=== PATIENT | male | born 1945 | race Hispanic/Latino ===

== ENCOUNTER 2017-07-09 11:33 | Outpatient (CLI) | payer MEDICARE ==
[2017-07-09 13:09] LABS: Anion Gap 12 mmol/L (10-20); BUN (Urea Nitrogen) 13 mg/dL (8.4-25.7); Calc. Creatinine Clearance 0 mL/min (70-130); Carbon Dioxide 26 mmol/L (23-31); Chloride 104 mmol/L (98-107); Estimated GFR-MDRD Greater than 90
--- NOTE | 2017-07-18 21:41 | EKG ---
Test Reason : Blood Pressure : / mmHG Vent. 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
== END 2017-07-09 11:34 | disposition home or self-care (01) ==
LOC: LABBT 11:33
PROVIDERS: ATTEND Surgery
DX: Z01.818 Encounter for other preprocedural examination (principal); K40.90 Unilateral inguinal hernia, without obstruction or gangrene, not specified as recurrent
CPT/HCPCS: 80048; 93005; 93010

== ENCOUNTER 2017-07-24 07:05 | Day surgery (SDC) | payer MEDICARE ==
[2017-07-09 11:53] VITALS: BMI 29.6
[2017-07-24] MEDS ORDERED: Bupivacaine/Epinephrine 0.25% 30 ML VIAL ONE (08:10)
[2017-07-24] MEDS ORDERED: CEFAZOLIN/Water 2 GM/20 ML SYRINGE ONE (08:48)
[2017-07-24] MEDS ORDERED: Midazolam HCl 2 mg/2 ml Vial ONE (09:07)
[2017-07-24] MEDS ORDERED: Fentanyl 250 MCG/5 ML VIAL ONE (09:07)
[2017-07-24] MEDS ORDERED: Fentanyl 100 MCG/2 ML VIAL ONE ×2 (09:07→11:00)
[2017-07-24] MEDS ORDERED: ePHEDrine/0.9% NaCl/PF SYRINGE 50 mg/10 ml ONE (09:18)
[2017-07-24] MEDS ORDERED: Ondansetron HCl/PF 4 MG/2 ML Vial ONE (09:18)
[2017-07-24] MEDS ORDERED: Propofol 200 MG/20 ML VIAL ONE (09:18)
[2017-07-24] MEDS ORDERED: Glycopyrrolate 0.2 MG/ML 5 ML SYRINGE ONE (09:18)
[2017-07-24] MEDS ORDERED: Dexamethasone 20 MG/5 ML VIAL ONE (09:18)
[2017-07-24] MEDS ORDERED: Lidocaine 1% PF 5 ML VIAL ONE (09:18)
[2017-07-24] MEDS ORDERED: Promethazine HCl 25 MG/ML VIAL ONE (11:58)
[2017-07-24] MEDS ORDERED: HYDROcodone/Acetaminophen 5/325 mg Tablet ONE (12:43)
--- NOTE | 2017-07-25 10:50 | OP ---
DATE OF PROCEDURE: 07/24/2017 PREOPERATIVE DIAGNOSIS: Right inguinal hernia. POSTOPERATIVE DIAGNOSIS: Right inguinal hernia. PROCEDURE: Da Senia laparoscopic right inguinal hernia repair with mesh. Covidien ProGrip large. SURGEON: Matias Angela M.D. ANESTHESIA: General. ESTIMATED BLOOD LOSS: Minimal. COMPLICATIONS: None. SPECIMEN: None. FINDINGS: Right inguinal hernia. TECHNIQUE: The patient was taken to the operating room and placed supine on the table. After genera l anesthetic was obtained, a Weber was placed. The abdomen was shaved, prepped and draped in a steri le fashion. Curved incision was made above the umbilicus. Cautery was used to dissect down to and s core the fascia. Abdominal cavity entered bluntly using a 12-mm Ethicon trocar. High-flow pneumoper itoneum was obtained. Left and right abdominal 8 mm robot trocars were placed. All ports were docke d to the robot. The patient had been placed in Trendelenburg position. The peritoneum was taken nazanin n in the right lower quadrant into the preperitoneal space and the preperitoneal space was fully diss ected. Pubic tubercle exposed medially and anterior superior iliac crest laterally, iliopectineal li ne fully exposed. The large indirect hernia sac was dissected out of the defect type on the peritone um. There was no direct defect. ProGrip mesh was brought in and it is labeled medial aspect was hailey ryan over the pubic tubercle. The mesh was unfolded completely cover the direct, indirect and femoral areas. The peritoneum was reapproximated using running 3-0 Stratafix. All port sites were infiltra julissa using local anesthetic. All ports were removed under camera visualization. Pneumoperitoneum was let down. PDS was used to close the fascial defect above the umbilicus. All incisions were irrigat ed and closed using 4-0 Monocryl and Dermabond was placed on the skin. The patient was en route to [facility] in stable condition. All instrument counts, needle counts, and lap counts were correct.
== END 2017-07-24 13:30 | disposition home or self-care (01) ==
LOC: SDC 07:05
PROVIDERS: ATTEND Surgery
PROC: 0YU54JZ Supplement Right Inguinal Region with Synthetic Substitute, Percutaneous Endoscopic Approach (ICD-10-PCS; principal; 2017-07-24)
DX: K40.90 Unilateral inguinal hernia, without obstruction or gangrene, not specified as recurrent (principal); I10 Essential (primary) hypertension; Z79.82 Long term (current) use of aspirin; Z79.899 Other long term (current) drug therapy; Z98.890 Other specified postprocedural states; Z91.02 Food additives allergy status
CPT/HCPCS: 74177; 80053; 81003; 83605; 83690; 85025; 87086; 96374; J1100; J1885; J2001; J2250; J2270; J2405; J2550; J2704; J3010

== ENCOUNTER 2017-07-24 16:21 | Emergency (ER) | payer MEDICARE ==
[2017-07-24 16:59] LABS: Bilirubin Negative (Negative); Blood, Urine Negative (Negative); Glucose, Urine (Dipstick) 500 mg/dL (Negative); Ketone, Urine Negative (Negative); Nitrite Negative (Negative); Protein, Urine (Dipstick) Negative (Neg-Trace); Urobilinogen 0.2 mg/dL (0.2-1.0)
== END 2017-07-24 17:56 | disposition home or self-care (01) ==
LOC: ERS 16:21
DX: R33.9 Retention of urine, unspecified (principal); I10 Essential (primary) hypertension
CPT/HCPCS: 81003; 87086

== ENCOUNTER 2017-07-24 20:08 | Emergency (ER) | payer MEDICARE ==
[2017-07-24] MEDS ORDERED: Morphine 4 MG/ML VIAL ONE (21:50)
[2017-07-24] MEDS ORDERED: Ondansetron HCl/PF 4 MG/2 ML Vial ONE (21:51)
[2017-07-24 21:56] LABS: #Monocytes 0.2 thou/uL (0.11-0.59); #Neutrophils 10.7 thou/uL (1.40-6.50); %Basophils 0.2 % (0.0-1.0); %Eosinophils 0.1 % (0.0-10.0); %Lymphocytes 7.9 % (21.0-51.0); %Monocytes 1.7 % (0.0-10.0); Hematocrit 45.8 % (42.0-52.0); Mean Platelet Volume 7.7 fL (7.4-10.4); White Blood Cell (WBC) Count 11.9 thou/uL (4.8-10.8)
[2017-07-24 22:11] LABS: Lactic Acid - Sepsis 2.5 mmol/L (0.5-2.2)
[2017-07-24 22:24] LABS: ALT (SGPT) 21 U/L (8-55); AST (SGOT) 20 U/L (5-34); Alkaline Phosphatase 42 U/L (40-150); Anion Gap 14 mmol/L (10-20); BUN (Urea Nitrogen) 14 mg/dL (8.4-25.7); Bilirubin, Total 0.7 mg/dL (0.2-1.2); Calc. Creatinine Clearance 0 mL/min (70-130); Calcium 9.3 mg/dL (7.8-10.44); Carbon Dioxide 22 mmol/L (23-31); Chloride 104 mmol/L (98-107); Estimated GFR-MDRD 83; Globulin 3.2 g/dL (2.4-3.5); Lipase 6 U/L (8-78); Protein, Total 7.6 g/dL (5.8-8.1)
[2017-07-24] MEDS ORDERED: Lidocaine 2% Jelly 5 ML TUBE ONE (23:18)
[2017-07-24] MEDS ORDERED: Ketorolac Tromethamine 30 MG/ML VIAL ONE (23:45)
[2017-07-24 23:57] LABS: Bilirubin Negative (Negative); Blood, Urine Large (Negative); Glucose, Urine (Dipstick) Negative (Negative); Ketone, Urine Negative (Negative); Nitrite Negative (Negative); Protein, Urine (Dipstick) Trace mg/dL (Neg-Trace); Urobilinogen 0.2 mg/dL (0.2-1.0)
[2017-07-25] LABS: Bacteria/HPF None Seen HPF (None Seen); Hyaline Casts/LPF 0-3 HYALINE CAST LPF (0-3 Hyaline); RBC/HPF GREATER THAN 50-TNTC HPF (0-3); Squamous Epithelial 0-3 HPF (0-3)
[2017-07-25 00:05] LABS: Oval Fat Bodies/HPF None Seen HPF (None Seen); Renal Epithelial 0-3 HPF (0-3); Sperm/HPF None Seen HPF (None Seen); Transitional Epithelial NONE SEEN HPF (0-3); Trichomonas/HPF None Seen HPF (None Seen); Yeast-All Forms None Seen HPF (None Seen)
== END 2017-07-25 00:30 | disposition home or self-care (01) ==
LOC: ERS 20:08
DX: R33.9 Retention of urine, unspecified (principal); N32.89 Other specified disorders of bladder; I10 Essential (primary) hypertension
CPT/HCPCS: 51702; 74177; 80053; 81003; 81015; 83605; 83690; 85025; 87086; 96361; 96374; 96375; J1885; J2250; J2270; J2405; J2550; J3010